=== PATIENT | female | born 1970 ===

== ENCOUNTER 2021-11-26 05:00 | Day surgery (SDC) | payer OTHER ==
[~2021-11-26] VITALS: Ht 154.9 cm; Wt 102.1 kg
[~2021-11-26 05:00] MED LIST: CYMBALTA60 MG PO; LOSARTAN-HCTZ1 EACH PO; MOUNJARO2.5 MG/0.5
== END 2021-11-26 10:40 | disposition home or self-care (01) ==
LOC: CIR.AMB 05:00
PROVIDERS: ATTEND Orthopaedic Surgery Hand Surgery
DX: G56.02 Carpal tunnel syndrome, left upper limb (principal); Z20.822 Contact with and (suspected) exposure to COVID-19; I10 Essential (primary) hypertension